=== PATIENT | male | born 1995 | race Caucasian/White ===

== ENCOUNTER 2016-12-11 17:58 | Emergency (ER) | payer BC ==
[2016-12-11] MEDS ORDERED: DIAZEPAM 5 MG/1 ML TUBX IM ONE (18:35)
[2016-12-11] MEDS ORDERED: KETOROLAC 30 MG/ML VIAL IM ONE (18:35)
[2016-12-11] MEDS ORDERED: HYDROMORPHONE HCL 1 MG/ML CPJ IM ONE (18:35)
[2016-12-11] MEDS ORDERED: PROMETHAZINE HCL 25 MG/ML VIAL IM ONE (18:35)
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
[2016-12-13 21:28] LABS: GC SPECIMEN TYPE Urine (())
== END 2016-12-11 19:24 | disposition home or self-care (01) ==
LOC: ER 17:58
DX: M54.16 Radiculopathy, lumbar region (principal); M54.31 Sciatica, right side
CPT/HCPCS: 96372; 99283; J1170; J1885; J2550; J3360

== ENCOUNTER 2016-12-25 11:30 | Emergency (ER) | payer BC ==
--- NOTE | 2016-12-25 12:03 | Emergency Department Record ---
History of Present Illness - General Chief Complaint: Ankle/Foot Injury Stated Complaint: ANKLE INJURY Time Seen by Provider: 12/25/16 11:56 Source: Patient Mode of Arrival: Ambulatory Limitations: No limitations - History of Present Illness Initial Comments: The patient is here due to R foot and ankle pain after injuring himself at home. He was in a tree doing some wood cutting when he slid down the tree with his ropes and landed funny on his foot and bent it backwards. Since it has been very painful and he is unable to walk on it. MD Complaint: Foot injury, Fall Onset/Timin -: Hour(s) Type of Injury: Blunt Place: Street/outdoors Severity scale (1-10): 8 Improves With: Immobilization Worsens With: Weight bearing Context: Fall - Related Data Previous Rx's Medication Instructions Recorded Ibuprofen [Motrin 600Mg] 600 mg PO Q6H #20 tablet 12/11/16 Hydrocodone/Acetaminophen [Lucernemines 1 - 2 each PO .EVERY 4-6 HRS PRN 12/25/16 5-325 Tablet] #20 tablet Allergies Allergy/AdvReac Type Severity Reaction Status Date / Time No Known Allergies Allergy no Verified 12/25/16 11:57 allergies Travel Screening - Travel/Exposure Within Last 30 Days Have you traveled within the last 30 days?: No Review of Systems Constitutional: Denies: Chills, Fever Eyes: Denies: Eye discharge ENT: Denies: Congestion Respiratory: Denies: Cough, Dyspnea Past Medical History - SOCIAL HISTORY Smoking Status: Never smoker Alcohol Use: None Drug Use: None - RESPIRATORY Hx Respiratory Disorders: No - CARDIOVASCULAR Hx Cardio Disorders: No - NEURO Hx Neuro Disorders: No - GI Hx GI Disorders: No - Hx Genitourinary Disorders: No - ENDOCRINE Hx Endocrine Disorders: No - MUSCULOSKELETAL Hx Musculoskeletal Disorders: Yes Hx Back Injury: Yes - PSYCH Hx Psych Problems: No - HEMATOLOGY/ONCOLOGY Hx Hematology/Oncology Disorders: No Family Medical History Any Significant Family History?: No Physical Exam - General General Appearance: Alert, Oriented x3, Cooperative, No acute distress - Eye Eye exam: Normal appearance, PERRL - Neck Neck exam: Normal inspection, Full ROM. negative: Tenderness - Respiratory Respiratory exam: Normal lung sounds bilaterally. negative: Respiratory distress - Cardiovascular Cardiovascular Exam: Regular rate, Normal rhythm, Normal heart sounds - GI/Abdominal GI/Abdominal exam: Soft, Normal bowel sounds. negative: Tenderness - Extremities Extremities exam: Normal inspection, Normal capillary refill, Tenderness (There is diffuse R dorsal foot and anterior ankle tenderness but no swelling, bruising or edema is appreciated.), Other (The R DP pulse is intact and normal and the R achilles tendon is normal and nontender.). negative: Calf tenderness , Full ROM (There is decreased R foot ROM due to pain.), Joint swelling, Pedal edema - Back Back exam: Reports: Normal inspection. Denies: Paraspinal tenderness, Vertebral tenderness Course Vital Signs 12/25/16 11:51 Temperature 97.9 F Pulse Rate 73 Respiratory 20 Rate Blood Pressure 114/59 Pulse Ox 97 - Reevaluation(s) Reevaluation #1: I did discuss the case with Dr. Lindo and he will see the patient in the Specialty clinic later this week. 12/25/16 12:39 12/25/16 13:47 Medical Decision Making - Data Complexity MDM Data: X-Ray Ordered and/or Reviewed - Radiology Data Radiology results: Report reviewed (R ankle: Neg R foot: Nondisplaced fx's of the distal R 2-4 MT bones.) Disposition Disposition: Discharge Clinical Impression: Foot fracture, right Qualifiers: Encounter type: initial encounter Fracture type: closed Qualified Code(s): S92.901A - Unspecified fracture of right foot, initial encounter for closed fracture Disposition: Home, Self-Care Condition: (1) Good Instructions: Foot Fracture in Adults (ED) Additional Instructions: Please ice and elevate the foot today with no weight bearing for a week. Use your crutches at all times. Please take the pain medicines as needed. Please see Dr. Lindo in the Specialty Clinic later this week as planned. Prescriptions: Hydrocodone/Acetaminophen [Lucernemines 5-325 Tablet] 1 - 2 each PO .EVERY 4-6 HRS PRN #20 tablet PRN Reason: Pain Referrals: [facility] Specialty Clin[facility] [Provider Group] HARMEET LINDO [DOCTOR OF OSTEOPATH] - Forms: Patient Portal Access Time of Disposition: 13:03
[2016-12-25] MEDS ORDERED: KETOROLAC 30 MG/ML VIAL IM ONE (12:12)
== END 2016-12-25 13:11 | disposition home or self-care (01) ==
LOC: ER 11:30
DX: S92.324A Nondisplaced fracture of second metatarsal bone, right foot, initial encounter for closed fracture (principal); S92.334A Nondisplaced fracture of third metatarsal bone, right foot, initial encounter for closed fracture; S92.344A Nondisplaced fracture of fourth metatarsal bone, right foot, initial encounter for closed fracture; Y93.H9 Activity, other involving exterior property and land maintenance, building and construction; Y92.007 Garden or yard of unspecified non-institutional (private) residence as the place of occurrence of the external cause
CPT/HCPCS: 29515; 99283; 96372; 99284; 73610; 73630; J1885